=== PATIENT | female | born 1930 | race Caucasian/White ===

== ENCOUNTER → 2018-03-22 | Outpatient (CLI) | payer MEDICARE | END | disposition home or self-care (01) | LOC: HKI 11:11 | DX: M25.551 Pain in right hip (principal); I10 Essential (primary) hypertension | CPT/HCPCS: 73502 ==

== ENCOUNTER → 2018-04-12 | Outpatient (CLI) | payer MEDICARE | END | disposition home or self-care (01) | LOC: HKI 11:41 | DX: Z01.818 Encounter for other preprocedural examination (principal) | CPT/HCPCS: G0463 ==

== ENCOUNTER → 2018-05-17 | Outpatient (CLI) | payer MEDICARE | END | disposition home or self-care (01) | LOC: HKI 11:32 | DX: Z47.1 Aftercare following joint replacement surgery (principal); Z96.641 Presence of right artificial hip joint | CPT/HCPCS: 87081 ==

== ENCOUNTER 2018-06-08 21:53 | Inpatient (IN) | payer MEDICARE ==
[2018-06-08] MEDS ORDERED: HYDROmorphONE 1 MG/ML SYG (22:15)
[2018-06-08] MEDS: HYDROmorphONE 0.5 MG/0.5 ML SYG IV ×2 (22:17→22:51)
[2018-06-08 22:41] LABS: ADD MAN DIFF? NO; BASOPHIL # 0.1 10^3/ul (0.0-0.1); BASOPHILS % 0.7 % (0.0-2.0); EOSINOPHILS # 0.2 10^3/ul (0.0-0.5); EOSINOPHILS % 2.2 % (0.0-7.0); HEMATOCRIT 36.4 % (37.0-47.0); HEMOGLOBIN 11.5 g/dl (12.0-16.0); LYMPHOCYTES # 1.2 10^3/ul (0.8-2.9); LYMPHOCYTES % 15.6 % (15.0-51.0); MEAN CORPUSCULAR HGB CONC 31.6 g/dl (32.0-37.0); MEAN PLATELET VOLUME 12.1 fl (7.4-10.4); MONOCYTE # 0.7 10^3/ul (0.3-0.9); MONOCYTES % 9.6 % (0.0-11.0); NEUTROPHIL # 5.3 10^3/ul (1.6-7.5); NEUTROPHILS % 71.6 % (39.0-77.0); PLATELET COUNT 177 10^3/UL (140-415); RED BLOOD COUNT 3.83 10^6/ul (4.20-5.40); RED CELL DISTRIBUTION WIDTH 13.7 % (11.5-14.5)
[2018-06-08 22:41] LABS: WHITE BLOOD COUNT 7.4 10^3/ul (4.8-10.8)
[2018-06-08] MEDS: ONDANSETRON 4 MG INJ IV (22:51)
[2018-06-08 22:59] LABS: ALANINE AMINOTRANSFERASE 20 IU/L (13-69); ALBUMIN/GLOBULIN RATIO 1.15; ALKALINE PHOSPHATASE 47 IU/L (42-121); ANION GAP 6 (5-13); ASPARTATE AMINO TRANSFERASE 19 IU/L (15-46); BILIRUBIN,INDIRECT 0.2 mg/dl (0-1.1); BILIRUBIN,TOTAL 0.2 mg/dl (0.2-1.3); BLOOD UREA NITROGEN 23 mg/dl (7-20); CALCIUM 9.1 mg/dl (8.4-10.2); CARBON DIOXIDE 30 mmol/L (21-31); CHLORIDE 107 mmol/L (97-110); CREATININE 0.95 mg/dl (0.44-1.00); GLUCOSE 136 mg/dl (70-220); LIPASE 95 U/L (23-300); POTASSIUM 3.7 mmol/L (3.5-5.1); SODIUM 143 mmol/L (135-144); TOTAL PROTEIN 5.6 g/dl (6.1-8.1)
[2018-06-08] MEDS ORDERED: NACL 0.9% 3 ML SYG IV (23:00)
[2018-06-08] MEDS ORDERED: ONDANSETRON 4 MG TAB PO (23:00)
[2018-06-08] MEDS ORDERED: DOCUSATE SODIUM 100 MG CAP PO (23:00)
[2018-06-08] MEDS ORDERED: ACETAMINOPHEN 325 MG TAB PO (23:00)
[2018-06-08 23:04] LABS: INR 0.99; PARTIAL THROMBOPLASTIN TIME 28.7 Sec (23.0-35.0); PROTIME 13.2 Sec (11.9-14.9)
[2018-06-08 23:20] LABS: ADD UMIC NO; UR ASCORBIC ACID NEGATIVE (NEGATIVE); UR BILIRUBIN (Dip) NEGATIVE (NEGATIVE); UR BLOOD (Dip) NEGATIVE (NEGATIVE); UR CLARITY CLEAR (CLEAR); UR COLOR YELLOW (YELLOW); UR GLUCOSE (Dip) NEGATIVE (NEGATIVE); UR KETONES (Dip) NEGATIVE (NEGATIVE); UR LEUKOCYTE ESTERASE (Dip) NEGATIVE Leu/ul (NEGATIVE); UR NITRITE (Dip) NEGATIVE (NEGATIVE); UR TOTAL PROTEIN (Dip) NEGATIVE (NEGATIVE); UR UROBILINOGEN (Dip) NEGATIVE (NEGATIVE)
[2018-06-09 05:42] LABS: ADD MAN DIFF? NO
[2018-06-09 05:50] LABS: BASOPHILS % 0.4 % (0.0-2.0); EOSINOPHILS # 0.2 10^3/ul (0.0-0.5); EOSINOPHILS % 2.4 % (0.0-7.0); HEMOGLOBIN 11.1 g/dl (12.0-16.0); LYMPHOCYTES # 1.4 10^3/ul (0.8-2.9); LYMPHOCYTES % 15.4 % (15.0-51.0); MEAN CORPUSCULAR HEMOGLOBIN 30.2 pg (29.0-33.0); MEAN CORPUSCULAR HGB CONC 30.8 g/dl (32.0-37.0); MEAN CORPUSCULAR VOLUME 98.1 fl (82.0-101.0); MEAN PLATELET VOLUME 11.6 fl (7.4-10.4); MONOCYTE # 0.9 10^3/ul (0.3-0.9); MONOCYTES % 10.1 % (0.0-11.0); NEUTROPHIL # 6.4 10^3/ul (1.6-7.5); NEUTROPHILS % 71.5 % (39.0-77.0); PLATELET COUNT 183 10^3/UL (140-415); RED BLOOD COUNT 3.67 10^6/ul (4.20-5.40); RED CELL DISTRIBUTION WIDTH 13.8 % (11.5-14.5)
[2018-06-09 05:50] LABS: WHITE BLOOD COUNT 8.9 10^3/ul (4.8-10.8)
[2018-06-09 06:18] LABS: ANION GAP 4 (5-13); BLOOD UREA NITROGEN 23 mg/dl (7-20); CALCIUM 8.8 mg/dl (8.4-10.2); CARBON DIOXIDE 33 mmol/L (21-31); CHLORIDE 107 mmol/L (97-110); GLUCOSE 103 mg/dl (70-220); POTASSIUM 4.7 mmol/L (3.5-5.1); SODIUM 144 mmol/L (135-144)
[2018-06-09] MEDS ORDERED: EPINEPHrine 0.1 MG/ML SYG (07:00)
[2018-06-09] MEDS ORDERED: VECURONIUM 10 MG VIAL (07:00)
[2018-06-09] MEDS: LISINOPRIL 20 MG TAB PO ×2 (08:40→10:20)
[2018-06-09] MEDS: FAMOTIDINE 20 MG TAB PO ×2 (08:40→20:12)
[2018-06-09] MEDS: HYDROCODONE/APAP (5/325) TAB PO (08:41)
[2018-06-09] MEDS: HYDROmorphONE 2 MG/ML SYG IV (09:25)
[2018-06-09] MEDS ORDERED: HYDROmorphONE 2 MG/ML SYG IV (09:30)
[2018-06-09] MEDS ORDERED: NALOXONE (0.4 MG/ML) INJ (09:34)
[2018-06-09] MEDS ORDERED: PROPOFOL 0 ML (09:53)
[2018-06-09] MEDS: PROPOFOL 100 ML IV ×2 (10:09→22:30)
[2018-06-09] MEDS: SOD CHLORIDE 0.9% 1,000 ML IV (10:20)
[2018-06-09] MEDS ORDERED: NORepinephrine 8MG/250 ML (PMX 250 ML (11:02)
[2018-06-09] MEDS ORDERED: NORepinephrine 8MG/250 ML (PMX 250 ML IV (11:30)
[2018-06-09 13:01] LABS: AADO2 Arterial 493.7 mmHg (7.0-24.0); Allen Test ACCEPTAB; Arterial Base Excess 1.5 mmol/L (-3.0-3); Arterial Blood Gas Oxygen Sat 99.1 mmHG (95.0-100.0); Arterial COHb 0.3 % (0.0-3.0); Arterial Fraction of Oxyhgb 98.5 % (93.0-99.0); Arterial HCO3 25.1 mmol/L (22.0-26.0); Arterial MetHb 0.3 % (0.0-1.5); Arterial Total Hemglobin 12.1 g/dl (12.0-18.0); MODE VENT - AC; Site Left Radial
[2018-06-09 14:06] LABS: TROPONIN-I 0.496 ng/ml (0.000-0.120)
[2018-06-09] MEDS: FENTAnyl (DRIP) 1000 mcg/100mL 100 ML IV (14:21)
[2018-06-09] MEDS: PIPER-TAZO 3.375 GM IV (PMX) 100 ML IVPB ×2 (14:22→21:47)
[2018-06-09] MEDS: ENOXAPARIN 40 MG/0.4 ML SYG SC (14:26)
[2018-06-09] MEDS ORDERED: HYDROmorphONE 0.2 MG/ML PCA IV (18:00)
[2018-06-10 01:04] LABS: TROPONIN-I 0.728 ng/ml (0.000-0.120)
[2018-06-10] MEDS: PROPOFOL 100 ML IV ×2 (04:21→22:30)
[2018-06-10] MEDS: FENTAnyl (DRIP) 1000 mcg/100mL 100 ML IV ×2 (04:24→20:55)
[2018-06-10] MEDS: PIPER-TAZO 3.375 GM IV (PMX) 100 ML IVPB ×3 (05:28→22:05)
[2018-06-10] MEDS: ENOXAPARIN 40 MG/0.4 ML SYG SC (09:00)
[2018-06-10] MEDS: FAMOTIDINE 20 MG TAB PO ×2 (09:00→20:15)
[2018-06-10 09:11] LABS: ADD MAN DIFF? NO
[2018-06-10 09:16] LABS: BASOPHIL # 0.1 10^3/ul (0.0-0.1); BASOPHILS % 0.6 % (0.0-2.0); EOSINOPHILS # 0.2 10^3/ul (0.0-0.5); EOSINOPHILS % 2.2 % (0.0-7.0); HEMATOCRIT 31.6 % (37.0-47.0); HEMOGLOBIN 10.1 g/dl (12.0-16.0); LYMPHOCYTES # 1.4 10^3/ul (0.8-2.9); LYMPHOCYTES % 14.8 % (15.0-51.0); MEAN CORPUSCULAR HEMOGLOBIN 30.2 pg (29.0-33.0); MEAN CORPUSCULAR VOLUME 94.6 fl (82.0-101.0); MEAN PLATELET VOLUME 11.7 fl (7.4-10.4); NEUTROPHIL # 6.8 10^3/ul (1.6-7.5); NEUTROPHILS % 72.1 % (39.0-77.0); PLATELET COUNT 165 10^3/UL (140-415); RED BLOOD COUNT 3.34 10^6/ul (4.20-5.40); RED CELL DISTRIBUTION WIDTH 14.1 % (11.5-14.5)
[2018-06-10 09:16] LABS: WHITE BLOOD COUNT 9.5 10^3/ul (4.8-10.8)
[2018-06-10 09:47] LABS: ANION GAP 5 (5-13); BLOOD UREA NITROGEN 28 mg/dl (7-20); CALCIUM 8.4 mg/dl (8.4-10.2); CARBON DIOXIDE 27 mmol/L (21-31); CHLORIDE 109 mmol/L (97-110); CREATININE 1.03 mg/dl (0.44-1.00); GLUCOSE 88 mg/dl (70-220); POTASSIUM 3.6 mmol/L (3.5-5.1); SODIUM 141 mmol/L (135-144)
[2018-06-10 22:47] LABS: Allen Test ACCEPTAB; Arterial Base Excess 1.5 mmol/L (-3.0-3); Arterial Blood Gas Oxygen Sat 96.5 mmHG (95.0-100.0); Arterial COHb 0.3 % (0.0-3.0); Arterial HCO3 25.1 mmol/L (22.0-26.0); Arterial MetHb 0.2 % (0.0-1.5); Arterial Total Hemglobin 11.5 g/dl (12.0-18.0); Arterial pCO2 36.2 mmhg (35-45); Blood Gas PS 10; MODE VENT - CPAP; Site Left Radial
[2018-06-11 05:14] LABS: ADD MAN DIFF? NO
[2018-06-11 05:15] LABS: WHITE BLOOD COUNT 9.2 10^3/ul (4.8-10.8)
[2018-06-11 05:15] LABS: ABNORMAL IP MESSAGE 1; BASOPHILS % 0.3 % (0.0-2.0); EOSINOPHILS # 0.2 10^3/ul (0.0-0.5); EOSINOPHILS % 2.3 % (0.0-7.0); HEMATOCRIT 30.3 % (37.0-47.0); HEMOGLOBIN 9.7 g/dl (12.0-16.0); LYMPHOCYTES # 1.2 10^3/ul (0.8-2.9); LYMPHOCYTES % 13.4 % (15.0-51.0); MEAN CORPUSCULAR HEMOGLOBIN 30.6 pg (29.0-33.0); MEAN CORPUSCULAR VOLUME 95.6 fl (82.0-101.0); MEAN PLATELET VOLUME 13.8 fl (7.4-10.4); MONOCYTE # 1.1 10^3/ul (0.3-0.9); MONOCYTES % 11.6 % (0.0-11.0); NEUTROPHIL # 6.6 10^3/ul (1.6-7.5); NEUTROPHILS % 72.1 % (39.0-77.0); PLATELET COUNT 78 10^3/UL (140-415); RED BLOOD COUNT 3.17 10^6/ul (4.20-5.40); RED CELL DISTRIBUTION WIDTH 13.9 % (11.5-14.5)
[2018-06-11 05:24] LABS: POSITIVE DIFF @See below
[2018-06-11 05:48] LABS: ANION GAP 6 (5-13); BLOOD UREA NITROGEN 30 mg/dl (7-20); CALCIUM 8.4 mg/dl (8.4-10.2); CARBON DIOXIDE 27 mmol/L (21-31); CHLORIDE 108 mmol/L (97-110); CREATININE 0.93 mg/dl (0.44-1.00); GLUCOSE 94 mg/dl (70-220); POTASSIUM 3.9 mmol/L (3.5-5.1); SODIUM 141 mmol/L (135-144)
[2018-06-11] MEDS: PIPER-TAZO 3.375 GM IV (PMX) 100 ML IVPB ×3 (06:15→21:58)
[2018-06-11] MEDS ORDERED: ENOXAPARIN 40 MG/0.4 ML SYG SC (09:00)
[2018-06-11] MEDS ORDERED: FONDAPARINUX 2.5 MG SYG SC (10:00)
[2018-06-11] MEDS: FAMOTIDINE 20 MG TAB PO ×2 (10:58→21:58)
[2018-06-11] MEDS: AZITHROMYCIN 250 MG TAB PO (14:37)
[2018-06-11] MEDS: FONDAPARINUX 7.5 MG SYG SC (14:40)
[2018-06-11] MEDS: HYDROCODONE/APAP (5/325) TAB PO (22:10)
[2018-06-12] MEDS: LEVOFLOXACIN 500 MG TAB PO (05:14)
[2018-06-12] MEDS: HYDROCODONE/APAP (5/325) TAB PO ×2 (05:15→11:49)
[2018-06-12] MEDS: FAMOTIDINE 20 MG TAB PO (08:15)
[2018-06-12] MEDS: FONDAPARINUX 7.5 MG SYG SC (08:16)
[2018-06-12] MEDS: BISACODYL (EC) 5 MG TAB PO (11:49)
[2018-06-12] MEDS: CELECOXIB 100 MG CAP PO (14:30)
[2018-06-12] MEDS: GABAPENTIN 100 MG CAP PO (14:30)
== END 2018-06-12 19:00 | DRG 208 ==
LOC: PP2 06-09 00:07 → E/R 21:53 → MS1 06-11 15:05 → ICU 06-09 09:48
PROC: 5A1945Z Respiratory Ventilation, 24-96 Consecutive Hours (ICD-10-PCS; principal; 2018-06-10 12:59)
PROC: 0SW9XJZ Revision of Synthetic Substitute in Right Hip Joint, External Approach (ICD-10-PCS; 2018-06-10 12:59)
PROC: 0BH17EZ Insertion of Endotracheal Airway into Trachea, Via Natural or Artificial Opening (ICD-10-PCS; 2018-06-10 12:59)
PROC: 5A12012 Performance of Cardiac Output, Single, Manual (ICD-10-PCS; 2018-06-10 12:59)
PROC: 0B21XEZ Change Endotracheal Airway in Trachea, External Approach (ICD-10-PCS; 2018-06-10 12:59)
DX: R09.2 Respiratory arrest (principal); J69.0 Pneumonitis due to inhalation of food and vomit; T84.020A Dislocation of internal right hip prosthesis, initial encounter; T85.638A Leakage of other specified internal prosthetic devices, implants and grafts, initial encounter; T40.2X5A Adverse effect of other opioids, initial encounter; D69.6 Thrombocytopenia, unspecified; D64.9 Anemia, unspecified; I10 Essential (primary) hypertension; K21.9 Gastro-esophageal reflux disease without esophagitis
CPT/HCPCS: 31500; 36415; 36600; 71045; 73510; 73530; 80048; 80053; 81003; 82803; 83690; 84443; 84484; 85025; 85610; 85730; 87081; 87086; 92950; 93005; 94002; 94003; 94770; 96374; 97116; 97163; 97530; 99217; 99285-25

== ENCOUNTER 2018-06-17 15:51 | Inpatient (IN) | payer MEDICARE, BC ==
[2018-06-17 17:07] LABS: ADD MAN DIFF? NO
[2018-06-17 17:10] LABS: WHITE BLOOD COUNT 8.4 10^3/ul (4.8-10.8)
[2018-06-17 17:10] LABS: BASOPHILS % 0.5 % (0.0-2.0); EOSINOPHILS # 0.3 10^3/ul (0.0-0.5); EOSINOPHILS % 3.8 % (0.0-7.0); HEMATOCRIT 33.1 % (37.0-47.0); HEMOGLOBIN 10.6 g/dl (12.0-16.0); LYMPHOCYTES # 1.1 10^3/ul (0.8-2.9); LYMPHOCYTES % 12.5 % (15.0-51.0); MEAN CORPUSCULAR HEMOGLOBIN 30.2 pg (29.0-33.0); MEAN CORPUSCULAR VOLUME 94.3 fl (82.0-101.0); MEAN PLATELET VOLUME 10.9 fl (7.4-10.4); MONOCYTE # 0.9 10^3/ul (0.3-0.9); MONOCYTES % 10.1 % (0.0-11.0); NEUTROPHIL # 6.1 10^3/ul (1.6-7.5); NEUTROPHILS % 72.9 % (39.0-77.0); PLATELET COUNT 280 10^3/UL (140-415); RED BLOOD COUNT 3.51 10^6/ul (4.20-5.40); RED CELL DISTRIBUTION WIDTH 13.4 % (11.5-14.5)
[2018-06-17] MEDS: ONDANSETRON 4 MG INJ IV (17:12)
[2018-06-17] MEDS: SOD CHLORIDE 0.9% 500 ML IV (17:12)
[2018-06-17] MEDS: morphine 4 MG/ML VIAL IV ×2 (17:12→20:00)
[2018-06-17 17:30] LABS: INR 1.08; PROTIME 14.1 Sec (11.9-14.9); PT RATIO 1.1
[2018-06-17] MEDS ORDERED: ACETAMINOPHEN 325 MG TAB PO (17:30)
[2018-06-17] MEDS ORDERED: ONDANSETRON 4 MG INJ IV ×2 (17:30→20:30)
[2018-06-17 17:32] LABS: ANION GAP 4 (5-13); BLOOD UREA NITROGEN 22 mg/dl (7-20); CALCIUM 9.2 mg/dl (8.4-10.2); CARBON DIOXIDE 28 mmol/L (21-31); CHLORIDE 107 mmol/L (97-110); CREATININE 0.74 mg/dl (0.44-1.00); GLUCOSE 92 mg/dl (70-220); POTASSIUM 4.3 mmol/L (3.5-5.1); SODIUM 139 mmol/L (135-144)
[2018-06-17] MEDS: CELECOXIB 100 MG CAP PO (21:30)
[2018-06-17] MEDS: FUROSEMIDE 20 MG INJ IV (21:39)
[2018-06-17] MEDS: HYDROCHLOROTHIAZIDE 25 MG TAB PO (21:39)
[2018-06-17] MEDS: GABAPENTIN 100 MG CAP PO (21:40)
[2018-06-17] MEDS: DOCUSATE SODIUM 100 MG CAP PO (21:40)
[2018-06-17] MEDS: FERROUS FUMARATE (SR) TAB PO (21:40)
[2018-06-18] MEDS: morphine 2 MG INJ IV (02:18)
[2018-06-18 05:38] LABS: ADD MAN DIFF? NO
[2018-06-18] MEDS: FUROSEMIDE 20 MG INJ IV (05:41)
[2018-06-18] MEDS: PANTOPRAZOLE (EC) 40 MG TAB PO (05:41)
[2018-06-18 05:43] LABS: BASOPHILS % 0.5 % (0.0-2.0); EOSINOPHILS # 0.4 10^3/ul (0.0-0.5); EOSINOPHILS % 4.3 % (0.0-7.0); HEMATOCRIT 32.1 % (37.0-47.0); HEMOGLOBIN 9.9 g/dl (12.0-16.0); LYMPHOCYTES % 11.6 % (15.0-51.0); MEAN CORPUSCULAR HEMOGLOBIN 29.7 pg (29.0-33.0); MEAN CORPUSCULAR HGB CONC 30.8 g/dl (32.0-37.0); MEAN CORPUSCULAR VOLUME 96.4 fl (82.0-101.0); MEAN PLATELET VOLUME 10.5 fl (7.4-10.4); MONOCYTES % 11.8 % (0.0-11.0); NEUTROPHIL # 5.9 10^3/ul (1.6-7.5); NEUTROPHILS % 71.6 % (39.0-77.0); PLATELET COUNT 331 10^3/UL (140-415); RED BLOOD COUNT 3.33 10^6/ul (4.20-5.40); RED CELL DISTRIBUTION WIDTH 13.6 % (11.5-14.5)
[2018-06-18 05:43] LABS: WHITE BLOOD COUNT 8.3 10^3/ul (4.8-10.8)
[2018-06-18 06:00] LABS: CHOLESTEROL 135 mg/dl (100-200)
[2018-06-18 06:00] LABS: CHOL/HDL RATIO 4.5 RATIO; HDL CHOLESTEROL 30 mg/dl (33-92); LDL CHOLESTEROL,CALCULATED 89 mg/dl; TRIGLYCERIDES 82 mg/dl (0-149)
[2018-06-18 06:11] LABS: ANION GAP 5 (5-13); BLOOD UREA NITROGEN 23 mg/dl (7-20); CALCIUM 8.9 mg/dl (8.4-10.2); CARBON DIOXIDE 30 mmol/L (21-31); CHLORIDE 106 mmol/L (97-110); CREATININE 1.01 mg/dl (0.44-1.00); GLUCOSE 113 mg/dl (70-220); POTASSIUM 4.3 mmol/L (3.5-5.1); SODIUM 141 mmol/L (135-144)
[2018-06-18] MEDS ORDERED: PANTOPRAZOLE (EC) 40 MG TAB PO (07:20)
[2018-06-18] MEDS: FERROUS FUMARATE (SR) TAB PO ×2 (09:38→21:00)
[2018-06-18] MEDS: LISINOPRIL 20 MG TAB PO (09:39)
[2018-06-18] MEDS: ASPIRIN (EC) 81 MG TAB PO (09:39)
[2018-06-18] MEDS: CELECOXIB 100 MG CAP PO ×2 (09:39→21:13)
[2018-06-18] MEDS: DOCUSATE SODIUM 100 MG CAP PO ×2 (09:39→21:14)
[2018-06-18] MEDS: GABAPENTIN 100 MG CAP PO ×3 (09:39→21:14)
[2018-06-18] MEDS: MULTIVITAMINS/MINERALS TAB PO (09:39)
[2018-06-18 18:57] LABS: B-TYPE NATRIURETIC PEPTIDE 2470 PG/ML (0-450)
[2018-06-18 18:59] LABS: TROPONIN-I < 0.012 ng/ml (0.000-0.120)
[2018-06-18] MEDS: HYDROCHLOROTHIAZIDE 25 MG TAB PO (21:13)
[2018-06-19 01:12] LABS: TROPONIN-I 0.014 ng/ml (0.000-0.120)
[2018-06-19 05:26] LABS: ADD MAN DIFF? NO
[2018-06-19 05:30] LABS: PLATELET COUNT 256 10^3/UL (140-415)
[2018-06-19 05:31] LABS: WHITE BLOOD COUNT 6.8 10^3/ul (4.8-10.8)
[2018-06-19 05:31] LABS: BASOPHILS % 0.6 % (0.0-2.0); EOSINOPHILS # 0.4 10^3/ul (0.0-0.5); EOSINOPHILS % 5.9 % (0.0-7.0); HEMATOCRIT 32.7 % (37.0-47.0); HEMOGLOBIN 10.2 g/dl (12.0-16.0); LYMPHOCYTES # 1.2 10^3/ul (0.8-2.9); LYMPHOCYTES % 17.3 % (15.0-51.0); MEAN CORPUSCULAR HEMOGLOBIN 29.7 pg (29.0-33.0); MEAN CORPUSCULAR HGB CONC 31.2 g/dl (32.0-37.0); MEAN CORPUSCULAR VOLUME 95.3 fl (82.0-101.0); MEAN PLATELET VOLUME 10.9 fl (7.4-10.4); MONOCYTES % 15.3 % (0.0-11.0); NEUTROPHIL # 4.1 10^3/ul (1.6-7.5); NEUTROPHILS % 60.6 % (39.0-77.0); PLATELET COUNT 282 10^3/UL (140-415); RED BLOOD COUNT 3.43 10^6/ul (4.20-5.40); RED CELL DISTRIBUTION WIDTH 13.6 % (11.5-14.5)
[2018-06-19 05:52] LABS: INR 1.09; PROTIME 14.2 Sec (11.9-14.9); PT RATIO 1.1
[2018-06-19 05:53] LABS: THROMBIN TIME 14.3 SEC (13.8-19.1)
[2018-06-19] MEDS: PANTOPRAZOLE (EC) 40 MG TAB PO (06:00)
[2018-06-19 06:14] LABS: ANION GAP 3 (5-13); BLOOD UREA NITROGEN 23 mg/dl (7-20); CALCIUM 9.3 mg/dl (8.4-10.2); CARBON DIOXIDE 36 mmol/L (21-31); CHLORIDE 103 mmol/L (97-110); CREATININE 0.97 mg/dl (0.44-1.00); GLUCOSE 88 mg/dl (70-220); POTASSIUM 4.5 mmol/L (3.5-5.1); SODIUM 142 mmol/L (135-144)
[2018-06-19] MEDS ORDERED: EPHEDrine SULFATE 50 MG/5 ML SYG (07:00)
[2018-06-19] MEDS: LISINOPRIL 10 MG TAB PO (09:00)
[2018-06-19] MEDS: FUROSEMIDE 20 MG TAB PO (09:00)
[2018-06-19] MEDS: MULTIVITAMINS/MINERALS TAB PO (09:00)
[2018-06-19] MEDS: ONDANSETRON 4 MG INJ IV ×3 (09:30→21:30)
[2018-06-19] MEDS ORDERED: NACL 0.9% 3 ML SYG IV (09:30)
[2018-06-19] MEDS ORDERED: BISACODYL 10 MG SUPP PR (09:30)
[2018-06-19] MEDS ORDERED: NALOXONE (0.4 MG/ML) INJ IV (09:30)
[2018-06-19] MEDS ORDERED: DIPHENHYDRAMINE 50 MG INJ IM (09:30)
[2018-06-19] MEDS ORDERED: BETHANECHOL 25 MG TAB PO (09:30)
[2018-06-19] MEDS ORDERED: NA PHOSPHATE/BIPHOS 133 ML ENEMA PR (09:30)
[2018-06-19] MEDS ORDERED: SENNA/DOCUSATE NA (8.6MG/50MG) TAB PO (09:30)
[2018-06-19] MEDS ORDERED: NEOSTIGMINE 3 MG/3 ML SYRINGE ×2 (11:12→12:20)
[2018-06-19] MEDS ORDERED: LIDOCAINE 2% (SDV) 5 ML INJ (11:12)
[2018-06-19] MEDS ORDERED: ROCURONIUM 50 MG INJ (11:12)
[2018-06-19] MEDS ORDERED: SUCCINYLCHOLINE CHLORIDE 100 MG/5 ML SYG IV (11:12)
[2018-06-19] MEDS ORDERED: PROPOFOL 20 ML (11:12)
[2018-06-19] MEDS ORDERED: GLYCOPYRROLATE 0.4 MG INJ ×2 (11:12→12:20)
[2018-06-19] MEDS ORDERED: POLYMYXIN B 500000 UNIT INJ (11:27)
[2018-06-19] MEDS ORDERED: KETOROLAC 30 MG INJ (12:19)
[2018-06-19] MEDS ORDERED: ROPIVACAINE 0.5 % 30 ML VIAL (12:19)
[2018-06-19] MEDS ORDERED: METOCLOPRAMIDE 10 MG INJ (12:20)
[2018-06-19] MEDS ORDERED: CEFAZOLIN 1 GM INJ (12:20)
[2018-06-19] MEDS ORDERED: ONDANSETRON 4 MG INJ (12:20)
[2018-06-19] MEDS ORDERED: EPHEDrine SULFATE 50 MG/5 ML SYG IV (13:00)
[2018-06-19] MEDS ORDERED: MIDAZOLAM 1 MG/ML 2 ML INJ IV (13:00)
[2018-06-19] MEDS ORDERED: hydrALAzine 20 MG INJ IV (13:00)
[2018-06-19] MEDS ORDERED: ONDANSETRON 4 MG INJ IV (13:00)
[2018-06-19] MEDS ORDERED: HYDROmorphONE 1 MG/5 ML IV SYRINGE IV ×3 (13:00)
[2018-06-19] MEDS ORDERED: FENTAnyl 50 MCG/ML VIAL IV ×3 (13:00)
[2018-06-19] MEDS ORDERED: METOCLOPRAMIDE 10 MG INJ IV (13:00)
[2018-06-19] MEDS ORDERED: MEPERIDINE 25 MG INJ IV (13:00)
[2018-06-19] MEDS ORDERED: LABETALOL HCL 20MG INJ IV (13:00)
[2018-06-19] MEDS ORDERED: DIPHENHYDRAMINE 50 MG INJ IV (13:00)
[2018-06-19] MEDS: ASPIRIN (EC) 325 MG TAB PO (13:24)
[2018-06-19] MEDS: CEFAZOLIN 1 GM/50 ML (PMX) 50 ML IVPB ×2 (13:24→17:27)
[2018-06-19] MEDS: DOCUSATE SODIUM 100 MG CAP PO (13:24)
[2018-06-19] MEDS: GABAPENTIN 100 MG CAP PO ×2 (14:38→20:48)
[2018-06-19] MEDS: oxyCODONE 5 MG TAB PO (14:39)
[2018-06-19] MEDS: SOD CHLORIDE 0.9% 1,000 ML IV (18:12)
[2018-06-19] MEDS: HYDROCHLOROTHIAZIDE 25 MG TAB PO (20:48)
[2018-06-20] MEDS: CEFAZOLIN 1 GM/50 ML (PMX) 50 ML IVPB (01:40)
[2018-06-20] MEDS: ONDANSETRON 4 MG INJ IV (03:30)
[2018-06-20 04:47] LABS: ADD MAN DIFF? NO
[2018-06-20 04:52] LABS: BASOPHILS % 0.3 % (0.0-2.0); EOSINOPHILS # 0.3 10^3/ul (0.0-0.5); EOSINOPHILS % 2.2 % (0.0-7.0); HEMOGLOBIN 9.4 g/dl (12.0-16.0); LYMPHOCYTES # 1.1 10^3/ul (0.8-2.9); LYMPHOCYTES % 9.2 % (15.0-51.0); MEAN CORPUSCULAR HEMOGLOBIN 29.7 pg (29.0-33.0); MEAN CORPUSCULAR HGB CONC 31.3 g/dl (32.0-37.0); MEAN CORPUSCULAR VOLUME 94.9 fl (82.0-101.0); MEAN PLATELET VOLUME 12.1 fl (7.4-10.4); MONOCYTE # 1.2 10^3/ul (0.3-0.9); MONOCYTES % 9.7 % (0.0-11.0); NEUTROPHIL # 9.5 10^3/ul (1.6-7.5); NEUTROPHILS % 78.2 % (39.0-77.0); PLATELET COUNT 191 10^3/UL (140-415); RED BLOOD COUNT 3.16 10^6/ul (4.20-5.40); RED CELL DISTRIBUTION WIDTH 13.4 % (11.5-14.5)
[2018-06-20 04:52] LABS: WHITE BLOOD COUNT 12.1 10^3/ul (4.8-10.8)
[2018-06-20 05:19] LABS: ANION GAP 3 (5-13); BLOOD UREA NITROGEN 23 mg/dl (7-20); CALCIUM 8.4 mg/dl (8.4-10.2); CARBON DIOXIDE 33 mmol/L (21-31); CHLORIDE 102 mmol/L (97-110); CREATININE 0.86 mg/dl (0.44-1.00); GLUCOSE 98 mg/dl (70-220); POTASSIUM 4.4 mmol/L (3.5-5.1); SODIUM 138 mmol/L (135-144)
[2018-06-20] MEDS: PANTOPRAZOLE (EC) 40 MG TAB PO (06:12)
[2018-06-20] MEDS: SOD CHLORIDE 0.9% 1,000 ML IV ×2 (09:00→21:30)
[2018-06-20] MEDS: LISINOPRIL 10 MG TAB PO (09:25)
[2018-06-20] MEDS: FERROUS FUMARATE (SR) TAB PO ×2 (09:26→21:00)
[2018-06-20] MEDS: DOCUSATE SODIUM 100 MG CAP PO ×2 (09:26→21:25)
[2018-06-20] MEDS: MULTIVITAMINS/MINERALS TAB PO (09:27)
[2018-06-20] MEDS: ASPIRIN (EC) 325 MG TAB PO (09:27)
[2018-06-20] MEDS: oxyCODONE 5 MG TAB PO ×4 (09:28→17:34)
[2018-06-20] MEDS: FUROSEMIDE 20 MG TAB PO (09:29)
[2018-06-20] MEDS: GABAPENTIN 100 MG CAP PO ×3 (09:30→21:25)
[2018-06-20] MEDS: CELECOXIB 200 MG CAP PO ×2 (09:30→21:25)
[2018-06-20 10:59] LABS: ADD UMIC NO; UR ASCORBIC ACID NEGATIVE (NEGATIVE); UR BILIRUBIN (Dip) NEGATIVE (NEGATIVE); UR BLOOD (Dip) NEGATIVE (NEGATIVE); UR CLARITY CLEAR (CLEAR); UR COLOR YELLOW (YELLOW); UR GLUCOSE (Dip) NEGATIVE (NEGATIVE); UR KETONES (Dip) NEGATIVE (NEGATIVE); UR LEUKOCYTE ESTERASE (Dip) NEGATIVE Leu/ul (NEGATIVE); UR NITRITE (Dip) NEGATIVE (NEGATIVE); UR SPECIFIC GRAVITY (Dip) 1.017 (1.003-1.030); UR TOTAL PROTEIN (Dip) NEGATIVE (NEGATIVE); UR UROBILINOGEN (Dip) NEGATIVE (NEGATIVE)
[2018-06-20] MEDS: HYDROCHLOROTHIAZIDE 25 MG TAB PO (21:27)
[2018-06-20] MEDS: MAGNESIUM HYDROXIDE 30ML CUP PO (21:30)
[2018-06-21 05:08] LABS: ADD MAN DIFF? NO
[2018-06-21 05:10] LABS: WHITE BLOOD COUNT 9.1 10^3/ul (4.8-10.8)
[2018-06-21 05:10] LABS: BASOPHILS % 0.4 % (0.0-2.0); EOSINOPHILS # 0.5 10^3/ul (0.0-0.5); EOSINOPHILS % 5.1 % (0.0-7.0); HEMOGLOBIN 9.1 g/dl (12.0-16.0); LYMPHOCYTES # 1.3 10^3/ul (0.8-2.9); LYMPHOCYTES % 14.6 % (15.0-51.0); MEAN CORPUSCULAR HEMOGLOBIN 29.8 pg (29.0-33.0); MEAN CORPUSCULAR HGB CONC 31.4 g/dl (32.0-37.0); MEAN CORPUSCULAR VOLUME 95.1 fl (82.0-101.0); MEAN PLATELET VOLUME 10.8 fl (7.4-10.4); MONOCYTE # 1.3 10^3/ul (0.3-0.9); MONOCYTES % 14.6 % (0.0-11.0); NEUTROPHIL # 5.9 10^3/ul (1.6-7.5); PLATELET COUNT 271 10^3/UL (140-415); RED BLOOD COUNT 3.05 10^6/ul (4.20-5.40); RED CELL DISTRIBUTION WIDTH 13.6 % (11.5-14.5)
[2018-06-21 05:50] LABS: ANION GAP 4 (5-13); BLOOD UREA NITROGEN 27 mg/dl (7-20); CALCIUM 8.4 mg/dl (8.4-10.2); CARBON DIOXIDE 34 mmol/L (21-31); CHLORIDE 102 mmol/L (97-110); CREATININE 0.96 mg/dl (0.44-1.00); GLUCOSE 101 mg/dl (70-220); POTASSIUM 3.9 mmol/L (3.5-5.1); SODIUM 140 mmol/L (135-144)
[2018-06-21] MEDS: PANTOPRAZOLE (EC) 40 MG TAB PO (06:39)
[2018-06-21] MEDS: FERROUS FUMARATE (SR) TAB PO ×2 (09:00→21:00)
[2018-06-21] MEDS: LISINOPRIL 10 MG TAB PO (09:00)
[2018-06-21] MEDS: SOD CHLORIDE 0.9% 1,000 ML IV ×2 (10:00→22:30)
[2018-06-21] MEDS: DOCUSATE SODIUM 100 MG CAP PO ×2 (10:41→21:01)
[2018-06-21] MEDS: ASPIRIN (EC) 325 MG TAB PO (10:41)
[2018-06-21] MEDS: MULTIVITAMINS/MINERALS TAB PO (10:41)
[2018-06-21] MEDS: GABAPENTIN 100 MG CAP PO ×3 (10:42→21:01)
[2018-06-21] MEDS: FUROSEMIDE 20 MG TAB PO (10:43)
[2018-06-21] MEDS: CELECOXIB 200 MG CAP PO (10:44)
[2018-06-21] MEDS: oxyCODONE 5 MG TAB PO ×2 (10:51→14:30)
[2018-06-21] MEDS: CELECOXIB 100 MG CAP PO (21:01)
[2018-06-21] MEDS: HYDROCHLOROTHIAZIDE 25 MG TAB PO (21:02)
[2018-06-22 05:15] LABS: ADD MAN DIFF? NO
[2018-06-22 05:19] LABS: BASOPHILS % 0.4 % (0.0-2.0); EOSINOPHILS # 0.5 10^3/ul (0.0-0.5); EOSINOPHILS % 5.7 % (0.0-7.0); HEMATOCRIT 30.2 % (37.0-47.0); HEMOGLOBIN 9.6 g/dl (12.0-16.0); LYMPHOCYTES # 1.6 10^3/ul (0.8-2.9); LYMPHOCYTES % 17.4 % (15.0-51.0); MEAN CORPUSCULAR HEMOGLOBIN 29.8 pg (29.0-33.0); MEAN CORPUSCULAR HGB CONC 31.8 g/dl (32.0-37.0); MEAN CORPUSCULAR VOLUME 93.8 fl (82.0-101.0); MEAN PLATELET VOLUME 10.5 fl (7.4-10.4); MONOCYTE # 1.2 10^3/ul (0.3-0.9); MONOCYTES % 13.6 % (0.0-11.0); NEUTROPHIL # 5.6 10^3/ul (1.6-7.5); NEUTROPHILS % 62.5 % (39.0-77.0); PLATELET COUNT 329 10^3/UL (140-415); RED BLOOD COUNT 3.22 10^6/ul (4.20-5.40); RED CELL DISTRIBUTION WIDTH 13.4 % (11.5-14.5)
[2018-06-22 06:05] LABS: ANION GAP 4 (5-13); BLOOD UREA NITROGEN 23 mg/dl (7-20); CALCIUM 8.8 mg/dl (8.4-10.2); CARBON DIOXIDE 34 mmol/L (21-31); CHLORIDE 103 mmol/L (97-110); CREATININE 0.86 mg/dl (0.44-1.00); GLUCOSE 96 mg/dl (70-220); POTASSIUM 3.9 mmol/L (3.5-5.1); SODIUM 141 mmol/L (135-144)
[2018-06-22] MEDS: PANTOPRAZOLE (EC) 40 MG TAB PO (06:09)
[2018-06-22] MEDS: LISINOPRIL 10 MG TAB PO (09:36)
[2018-06-22] MEDS: CELECOXIB 100 MG CAP PO (09:37)
[2018-06-22] MEDS: DOCUSATE SODIUM 100 MG CAP PO (09:37)
[2018-06-22] MEDS: MULTIVITAMINS/MINERALS TAB PO (09:37)
[2018-06-22] MEDS: FERROUS FUMARATE (SR) TAB PO (09:38)
[2018-06-22] MEDS: ASPIRIN (EC) 325 MG TAB PO (09:38)
[2018-06-22] MEDS: GABAPENTIN 100 MG CAP PO ×2 (09:38→12:12)
[2018-06-22] MEDS: FUROSEMIDE 20 MG TAB PO (09:38)
[2018-06-22] MEDS: oxyCODONE 5 MG TAB PO ×2 (09:39→17:05)
[2018-06-22] MEDS: SOD CHLORIDE 0.9% 1,000 ML IV (11:00)
[2018-06-22] MEDS: ACETAMINOPHEN 325 MG TAB PO (12:11)
== END 2018-06-22 18:15 | DRG 466 ==
LOC: E/R 15:51 → MS1 17:25
PROC: 0SRR03A Replacement of Right Hip Joint, Femoral Surface with Ceramic Synthetic Substitute, Uncemented, Open Approach (ICD-10-PCS; principal; 2018-06-19 07:30)
PROC: 0SPR0JZ Removal of Synthetic Substitute from Right Hip Joint, Femoral Surface, Open Approach (ICD-10-PCS; 2018-06-19 07:30)
PROC: 0SP909Z Removal of Liner from Right Hip Joint, Open Approach (ICD-10-PCS; 2018-06-19 07:30)
PROC: 0SUA09Z Supplement Right Hip Joint, Acetabular Surface with Liner, Open Approach (ICD-10-PCS; 2018-06-19 07:30)
DX: T84.020A Dislocation of internal right hip prosthesis, initial encounter (principal); I50.31 Acute diastolic (congestive) heart failure; K21.9 Gastro-esophageal reflux disease without esophagitis; E78.5 Hyperlipidemia, unspecified; D64.9 Anemia, unspecified; I11.0 Hypertensive heart disease with heart failure; I95.9 Hypotension, unspecified; E66.9 Obesity, unspecified; Z68.34 Body mass index [BMI] 34.0-34.9, adult; M24.451 Recurrent dislocation, right hip; Z79.82 Long term (current) use of aspirin
CPT/HCPCS: 36415; 71045; 72170; 73510; 80048; 80061; 81003; 83880; 84484; 85025; 85049; 85610; 85670; 85730; 86850; 86900; 86901; 86920; 87081; 87086; 88300; 93005; 93306; 93970; 96374; 96375; 97110; 97116; 97161; 97530; 99285-25

== ENCOUNTER 2018-06-22 18:33 | Inpatient (IN) | payer MEDICARE, BC ==
[2018-06-22] MEDS ORDERED: BISACODYL 10 MG SUPP PR (19:00)
[2018-06-22] MEDS ORDERED: DIPHENHYDRAMINE 50 MG INJ IM (19:00)
[2018-06-22] MEDS ORDERED: NA PHOSPHATE/BIPHOS 133 ML ENEMA PR (19:00)
[2018-06-22] MEDS ORDERED: MAGNESIUM HYDROXIDE 30ML CUP PO (19:00)
[2018-06-22] MEDS ORDERED: morphine 2 MG INJ IV (19:00)
[2018-06-22] MEDS ORDERED: SENNA/DOCUSATE NA (8.6MG/50MG) TAB PO (19:00)
[2018-06-22] MEDS ORDERED: NALOXONE (0.4 MG/ML) INJ IV (19:00)
[2018-06-22] MEDS: FERROUS FUMARATE (SR) TAB PO (22:30)
[2018-06-22] MEDS: CELECOXIB 100 MG CAP PO (22:31)
[2018-06-22] MEDS: GABAPENTIN 100 MG CAP PO (22:31)
[2018-06-22] MEDS: DOCUSATE SODIUM 100 MG CAP PO (22:31)
[2018-06-22] MEDS: HYDROCHLOROTHIAZIDE 25 MG TAB PO (22:40)
[2018-06-22 23:30] LABS: ADD UMIC NO; UR ASCORBIC ACID NEGATIVE (NEGATIVE); UR BILIRUBIN (Dip) NEGATIVE (NEGATIVE); UR BLOOD (Dip) NEGATIVE (NEGATIVE); UR CLARITY CLEAR (CLEAR); UR COLOR YELLOW (YELLOW); UR GLUCOSE (Dip) NEGATIVE (NEGATIVE); UR KETONES (Dip) NEGATIVE (NEGATIVE); UR LEUKOCYTE ESTERASE (Dip) NEGATIVE Leu/ul (NEGATIVE); UR NITRITE (Dip) NEGATIVE (NEGATIVE); UR SPECIFIC GRAVITY (Dip) 1.012 (1.003-1.030); UR TOTAL PROTEIN (Dip) NEGATIVE (NEGATIVE); UR UROBILINOGEN (Dip) NEGATIVE (NEGATIVE)
[2018-06-23] MEDS: PANTOPRAZOLE (EC) 40 MG TAB PO (06:19)
[2018-06-23 07:16] LABS: ADD MAN DIFF? NO
[2018-06-23 07:21] LABS: BASOPHIL # 0.1 10^3/ul (0.0-0.1); BASOPHILS % 0.8 % (0.0-2.0); EOSINOPHILS # 0.5 10^3/ul (0.0-0.5); EOSINOPHILS % 6.4 % (0.0-7.0); HEMATOCRIT 31.7 % (37.0-47.0); HEMOGLOBIN 9.9 g/dl (12.0-16.0); LYMPHOCYTES # 1.5 10^3/ul (0.8-2.9); LYMPHOCYTES % 18.5 % (15.0-51.0); MEAN CORPUSCULAR HEMOGLOBIN 29.2 pg (29.0-33.0); MEAN CORPUSCULAR HGB CONC 31.2 g/dl (32.0-37.0); MEAN CORPUSCULAR VOLUME 93.5 fl (82.0-101.0); MEAN PLATELET VOLUME 11.3 fl (7.4-10.4); MONOCYTE # 1.1 10^3/ul (0.3-0.9); MONOCYTES % 13.7 % (0.0-11.0); NEUTROPHIL # 4.8 10^3/ul (1.6-7.5); NEUTROPHILS % 60.3 % (39.0-77.0); PLATELET COUNT 307 10^3/UL (140-415); RED BLOOD COUNT 3.39 10^6/ul (4.20-5.40); RED CELL DISTRIBUTION WIDTH 13.3 % (11.5-14.5)
[2018-06-23 07:44] LABS: ALANINE AMINOTRANSFERASE 12 IU/L (13-69); ALBUMIN 2.9 g/dl (3.3-4.9); ALBUMIN/GLOBULIN RATIO 1.11; ALKALINE PHOSPHATASE 65 IU/L (42-121); ANION GAP 6 (5-13); ASPARTATE AMINO TRANSFERASE 19 IU/L (15-46); BILIRUBIN,INDIRECT 0.4 mg/dl (0-1.1); BILIRUBIN,TOTAL 0.4 mg/dl (0.2-1.3); BLOOD UREA NITROGEN 17 mg/dl (7-20); CALCIUM 9.1 mg/dl (8.4-10.2); CARBON DIOXIDE 33 mmol/L (21-31); CHLORIDE 104 mmol/L (97-110); CREATININE 0.71 mg/dl (0.44-1.00); GLUCOSE 91 mg/dl (70-220); SODIUM 143 mmol/L (135-144); TOTAL PROTEIN 5.5 g/dl (6.1-8.1)
[2018-06-23] MEDS: LISINOPRIL 10 MG TAB PO (09:00)
[2018-06-23] MEDS: FERROUS FUMARATE (SR) TAB PO ×2 (09:56→21:35)
[2018-06-23] MEDS: MULTIVITAMINS/MINERALS TAB PO (09:56)
[2018-06-23] MEDS: ASPIRIN (EC) 325 MG TAB PO (09:56)
[2018-06-23] MEDS: GABAPENTIN 100 MG CAP PO ×3 (09:57→21:35)
[2018-06-23] MEDS: DOCUSATE SODIUM 100 MG CAP PO ×2 (09:58→21:35)
[2018-06-23] MEDS: CELECOXIB 100 MG CAP PO ×2 (09:58→21:35)
[2018-06-23] MEDS: FUROSEMIDE 20 MG TAB PO (09:58)
[2018-06-23] MEDS: ACETAMINOPHEN 325 MG TAB PO (21:35)
[2018-06-24] MEDS: PANTOPRAZOLE (EC) 40 MG TAB PO (06:34)
[2018-06-24] MEDS: oxyCODONE 5 MG TAB PO ×2 (08:13→20:12)
[2018-06-24] MEDS: FERROUS FUMARATE (SR) TAB PO ×2 (08:16→20:10)
[2018-06-24] MEDS: DOCUSATE SODIUM 100 MG CAP PO ×2 (08:16→20:10)
[2018-06-24] MEDS: ASPIRIN (EC) 325 MG TAB PO (08:16)
[2018-06-24] MEDS: GABAPENTIN 100 MG CAP PO ×3 (08:16→20:10)
[2018-06-24] MEDS: MULTIVITAMINS/MINERALS TAB PO (08:16)
[2018-06-24] MEDS: ACETAMINOPHEN 325 MG TAB PO (12:26)
[2018-06-24] MEDS: LISINOPRIL 10 MG TAB PO (12:49)
[2018-06-24] MEDS: CELECOXIB 100 MG CAP PO ×2 (14:42→20:10)
[2018-06-25] MEDS: PANTOPRAZOLE (EC) 40 MG TAB PO (06:08)
[2018-06-25] MEDS: oxyCODONE 5 MG TAB PO (07:52)
[2018-06-25] MEDS: ASPIRIN (EC) 325 MG TAB PO (08:24)
[2018-06-25] MEDS: FERROUS FUMARATE (SR) TAB PO ×2 (08:24→20:16)
[2018-06-25] MEDS: MULTIVITAMINS/MINERALS TAB PO (08:24)
[2018-06-25] MEDS: LISINOPRIL 10 MG TAB PO (08:25)
[2018-06-25] MEDS: GABAPENTIN 100 MG CAP PO ×3 (08:25→20:16)
[2018-06-25] MEDS: CELECOXIB 100 MG CAP PO ×2 (08:25→20:17)
[2018-06-25] MEDS: DOCUSATE SODIUM 100 MG CAP PO ×2 (08:25→20:17)
[2018-06-25] MEDS: ACETAMINOPHEN 325 MG TAB PO (17:02)
[2018-06-26] MEDS: PANTOPRAZOLE (EC) 40 MG TAB PO (06:25)
[2018-06-26] MEDS: DOCUSATE SODIUM 100 MG CAP PO ×2 (08:18→20:53)
[2018-06-26] MEDS: GABAPENTIN 100 MG CAP PO ×3 (08:18→20:52)
[2018-06-26] MEDS: CELECOXIB 100 MG CAP PO ×2 (08:18→20:52)
[2018-06-26] MEDS: LISINOPRIL 20 MG TAB PO (08:18)
[2018-06-26] MEDS: oxyCODONE 5 MG TAB PO (08:19)
[2018-06-26] MEDS: ASPIRIN (EC) 325 MG TAB PO (08:19)
[2018-06-26] MEDS: MULTIVITAMINS/MINERALS TAB PO (08:19)
[2018-06-26] MEDS: FERROUS FUMARATE (SR) TAB PO ×2 (08:19→20:52)
[2018-06-27] MEDS: PANTOPRAZOLE (EC) 40 MG TAB PO (06:06)
[2018-06-27] MEDS: ASPIRIN (EC) 325 MG TAB PO (08:38)
[2018-06-27] MEDS: CELECOXIB 100 MG CAP PO ×2 (08:38→20:24)
[2018-06-27] MEDS: LISINOPRIL 20 MG TAB PO (08:38)
[2018-06-27] MEDS: FERROUS FUMARATE (SR) TAB PO ×2 (08:38→20:24)
[2018-06-27] MEDS: GABAPENTIN 100 MG CAP PO ×3 (08:38→20:24)
[2018-06-27] MEDS: MULTIVITAMINS/MINERALS TAB PO (08:38)
[2018-06-27] MEDS: DOCUSATE SODIUM 100 MG CAP PO ×2 (08:39→20:24)
[2018-06-27] MEDS: oxyCODONE 5 MG TAB PO ×2 (11:14→18:42)
[2018-06-28 06:16] LABS: ADD MAN DIFF? NO
[2018-06-28 06:19] LABS: BASOPHIL # 0.1 10^3/ul (0.0-0.1); BASOPHILS % 0.8 % (0.0-2.0); EOSINOPHILS # 0.6 10^3/ul (0.0-0.5); EOSINOPHILS % 8.8 % (0.0-7.0); HEMATOCRIT 32.6 % (37.0-47.0); LYMPHOCYTES # 1.3 10^3/ul (0.8-2.9); LYMPHOCYTES % 17.1 % (15.0-51.0); MEAN CORPUSCULAR HEMOGLOBIN 29.3 pg (29.0-33.0); MEAN CORPUSCULAR HGB CONC 30.7 g/dl (32.0-37.0); MEAN CORPUSCULAR VOLUME 95.6 fl (82.0-101.0); MEAN PLATELET VOLUME 11.9 fl (7.4-10.4); MONOCYTE # 0.8 10^3/ul (0.3-0.9); MONOCYTES % 11.2 % (0.0-11.0); NEUTROPHIL # 4.5 10^3/ul (1.6-7.5); NEUTROPHILS % 61.7 % (39.0-77.0); PLATELET COUNT 226 10^3/UL (140-415); RED BLOOD COUNT 3.41 10^6/ul (4.20-5.40); RED CELL DISTRIBUTION WIDTH 13.8 % (11.5-14.5)
[2018-06-28 06:19] LABS: WHITE BLOOD COUNT 7.3 10^3/ul (4.8-10.8)
[2018-06-28] MEDS: PANTOPRAZOLE (EC) 40 MG TAB PO (06:20)
[2018-06-28 06:57] LABS: ANION GAP 1 (5-13); BLOOD UREA NITROGEN 22 mg/dl (7-20); CALCIUM 8.8 mg/dl (8.4-10.2); CARBON DIOXIDE 30 mmol/L (21-31); CHLORIDE 110 mmol/L (97-110); CREATININE 0.75 mg/dl (0.44-1.00); GLUCOSE 99 mg/dl (70-220); SODIUM 141 mmol/L (135-144)
[2018-06-28 07:26] LABS: POTASSIUM 4.3 mmol/L (3.5-5.1)
[2018-06-28] MEDS: MULTIVITAMINS/MINERALS TAB PO (09:10)
[2018-06-28] MEDS: ASPIRIN (EC) 325 MG TAB PO (09:11)
[2018-06-28] MEDS: LISINOPRIL 20 MG TAB PO (09:11)
[2018-06-28] MEDS: DOCUSATE SODIUM 100 MG CAP PO ×2 (09:11→20:26)
[2018-06-28] MEDS: CELECOXIB 100 MG CAP PO ×2 (09:11→20:25)
[2018-06-28] MEDS: FERROUS FUMARATE (SR) TAB PO ×2 (09:12→20:26)
[2018-06-28] MEDS: GABAPENTIN 100 MG CAP PO ×3 (09:12→20:26)
[2018-06-28] MEDS: oxyCODONE 5 MG TAB PO (12:06)
[2018-06-29] MEDS: PANTOPRAZOLE (EC) 40 MG TAB PO (05:58)
[2018-06-29] MEDS: FERROUS FUMARATE (SR) TAB PO ×2 (09:44→20:22)
[2018-06-29] MEDS: CELECOXIB 100 MG CAP PO ×2 (09:44→20:23)
[2018-06-29] MEDS: LISINOPRIL 20 MG TAB PO (09:44)
[2018-06-29] MEDS: MULTIVITAMINS/MINERALS TAB PO (09:44)
[2018-06-29] MEDS: ASPIRIN (EC) 325 MG TAB PO (09:44)
[2018-06-29] MEDS: DOCUSATE SODIUM 100 MG CAP PO ×2 (09:44→20:23)
[2018-06-29] MEDS: oxyCODONE 5 MG TAB PO ×2 (09:45→20:23)
[2018-06-29] MEDS: GABAPENTIN 100 MG CAP PO ×3 (09:45→20:23)
[2018-06-29] MEDS: ACETAMINOPHEN 325 MG TAB PO (11:27)
[2018-06-30] MEDS: PANTOPRAZOLE (EC) 40 MG TAB PO (06:03)
[2018-06-30] MEDS: ASPIRIN (EC) 325 MG TAB PO (08:36)
[2018-06-30] MEDS: FERROUS FUMARATE (SR) TAB PO ×2 (08:36→21:39)
[2018-06-30] MEDS: MULTIVITAMINS/MINERALS TAB PO (08:36)
[2018-06-30] MEDS: DOCUSATE SODIUM 100 MG CAP PO ×2 (08:36→21:39)
[2018-06-30] MEDS: CELECOXIB 100 MG CAP PO ×2 (08:36→21:38)
[2018-06-30] MEDS: GABAPENTIN 100 MG CAP PO ×3 (08:37→21:39)
[2018-06-30] MEDS: LISINOPRIL 20 MG TAB PO (08:39)
[2018-06-30] MEDS: oxyCODONE 5 MG TAB PO ×3 (09:00→18:46)
[2018-07-01] MEDS: PANTOPRAZOLE (EC) 40 MG TAB PO (06:37)
[2018-07-01] MEDS: LISINOPRIL 20 MG TAB PO (09:00)
[2018-07-01] MEDS: GABAPENTIN 100 MG CAP PO ×3 (09:31→21:10)
[2018-07-01] MEDS: DOCUSATE SODIUM 100 MG CAP PO ×2 (09:31→21:10)
[2018-07-01] MEDS: FERROUS FUMARATE (SR) TAB PO ×2 (09:32→21:10)
[2018-07-01] MEDS: MULTIVITAMINS/MINERALS TAB PO (09:35)
[2018-07-01] MEDS: CELECOXIB 100 MG CAP PO ×2 (09:35→21:10)
[2018-07-01] MEDS: ASPIRIN (EC) 325 MG TAB PO (09:35)
[2018-07-02] MEDS: PANTOPRAZOLE (EC) 40 MG TAB PO (06:47)
[2018-07-02] MEDS: GABAPENTIN 100 MG CAP PO ×3 (08:04→21:06)
[2018-07-02] MEDS: FERROUS FUMARATE (SR) TAB PO ×2 (08:04→21:06)
[2018-07-02] MEDS: ASPIRIN (EC) 325 MG TAB PO (08:04)
[2018-07-02] MEDS: CELECOXIB 100 MG CAP PO ×2 (08:05→21:06)
[2018-07-02] MEDS: DOCUSATE SODIUM 100 MG CAP PO ×2 (08:05→21:06)
[2018-07-02] MEDS: MULTIVITAMINS/MINERALS TAB PO (08:05)
[2018-07-02] MEDS: LISINOPRIL 20 MG TAB PO (08:05)
[2018-07-03] MEDS: PANTOPRAZOLE (EC) 40 MG TAB PO (06:28)
[2018-07-03] MEDS: LISINOPRIL 20 MG TAB PO (09:41)
[2018-07-03] MEDS: CELECOXIB 100 MG CAP PO ×2 (09:41→21:34)
[2018-07-03] MEDS: GABAPENTIN 100 MG CAP PO ×3 (09:41→21:34)
[2018-07-03] MEDS: ASPIRIN (EC) 325 MG TAB PO (09:41)
[2018-07-03] MEDS: MULTIVITAMINS/MINERALS TAB PO (09:41)
[2018-07-03] MEDS: DOCUSATE SODIUM 100 MG CAP PO ×2 (09:42→21:33)
[2018-07-03] MEDS: FERROUS FUMARATE (SR) TAB PO ×2 (09:42→21:33)
[2018-07-04] MEDS: PANTOPRAZOLE (EC) 40 MG TAB PO (05:43)
[2018-07-04] MEDS: DOCUSATE SODIUM 100 MG CAP PO ×2 (09:29→21:05)
[2018-07-04] MEDS: ASPIRIN (EC) 325 MG TAB PO (09:29)
[2018-07-04] MEDS: LISINOPRIL 20 MG TAB PO (09:30)
[2018-07-04] MEDS: FERROUS FUMARATE (SR) TAB PO ×2 (09:30→21:05)
[2018-07-04] MEDS: GABAPENTIN 100 MG CAP PO ×3 (09:30→21:05)
[2018-07-04] MEDS: CELECOXIB 100 MG CAP PO ×2 (09:30→21:05)
[2018-07-04] MEDS: oxyCODONE 5 MG TAB PO ×3 (09:30→16:52)
[2018-07-04] MEDS: MULTIVITAMINS/MINERALS TAB PO (09:31)
[2018-07-05] MEDS: PANTOPRAZOLE (EC) 40 MG TAB PO (06:12)
[2018-07-05] MEDS: CELECOXIB 100 MG CAP PO ×2 (08:29→20:28)
[2018-07-05] MEDS: MULTIVITAMINS/MINERALS TAB PO (08:29)
[2018-07-05] MEDS: FERROUS FUMARATE (SR) TAB PO ×2 (08:29→20:31)
[2018-07-05] MEDS: DOCUSATE SODIUM 100 MG CAP PO ×2 (08:29→20:28)
[2018-07-05] MEDS: ASPIRIN (EC) 325 MG TAB PO (08:29)
[2018-07-05] MEDS: GABAPENTIN 100 MG CAP PO ×3 (08:29→20:28)
[2018-07-05] MEDS: LISINOPRIL 20 MG TAB PO (08:30)
[2018-07-05] MEDS: oxyCODONE 5 MG TAB PO (17:35)
[2018-07-06] MEDS: PANTOPRAZOLE (EC) 40 MG TAB PO (06:21)
[2018-07-06] MEDS: ASPIRIN (EC) 325 MG TAB PO (08:36)
[2018-07-06] MEDS: MULTIVITAMINS/MINERALS TAB PO (08:36)
[2018-07-06] MEDS: FERROUS FUMARATE (SR) TAB PO ×2 (08:37→21:25)
[2018-07-06] MEDS: CELECOXIB 100 MG CAP PO ×2 (08:37→21:25)
[2018-07-06] MEDS: DOCUSATE SODIUM 100 MG CAP PO ×2 (08:37→21:28)
[2018-07-06] MEDS: GABAPENTIN 100 MG CAP PO ×3 (08:37→21:25)
[2018-07-06] MEDS: LISINOPRIL 20 MG TAB PO (08:37)
[2018-07-07] MEDS: PANTOPRAZOLE (EC) 40 MG TAB PO (05:41)
[2018-07-07] MEDS: MULTIVITAMINS/MINERALS TAB PO (09:16)
[2018-07-07] MEDS: DOCUSATE SODIUM 100 MG CAP PO ×2 (09:16→20:23)
[2018-07-07] MEDS: FERROUS FUMARATE (SR) TAB PO ×2 (09:16→20:23)
[2018-07-07] MEDS: LISINOPRIL 20 MG TAB PO (09:16)
[2018-07-07] MEDS: ASPIRIN (EC) 325 MG TAB PO (09:17)
[2018-07-07] MEDS: GABAPENTIN 100 MG CAP PO ×3 (09:17→20:23)
[2018-07-07] MEDS: CELECOXIB 100 MG CAP PO ×2 (09:17→20:22)
[2018-07-07] MEDS: oxyCODONE 5 MG TAB PO (20:26)
[2018-07-08] MEDS: PANTOPRAZOLE (EC) 40 MG TAB PO (06:01)
[2018-07-08] MEDS: CELECOXIB 100 MG CAP PO ×2 (08:35→21:18)
[2018-07-08] MEDS: DOCUSATE SODIUM 100 MG CAP PO ×2 (08:35→21:18)
[2018-07-08] MEDS: FERROUS FUMARATE (SR) TAB PO ×2 (08:35→21:18)
[2018-07-08] MEDS: ASPIRIN (EC) 325 MG TAB PO (08:35)
[2018-07-08] MEDS: GABAPENTIN 100 MG CAP PO ×3 (08:35→21:18)
[2018-07-08] MEDS: LISINOPRIL 20 MG TAB PO (08:36)
[2018-07-08] MEDS: MULTIVITAMINS/MINERALS TAB PO (08:36)
[2018-07-09] MEDS: PANTOPRAZOLE (EC) 40 MG TAB PO (06:16)
[2018-07-09] MEDS: CELECOXIB 100 MG CAP PO (08:11)
[2018-07-09] MEDS: GABAPENTIN 100 MG CAP PO ×2 (08:12→12:24)
[2018-07-09] MEDS: DOCUSATE SODIUM 100 MG CAP PO (08:12)
[2018-07-09] MEDS: FERROUS FUMARATE (SR) TAB PO (08:12)
[2018-07-09] MEDS: MULTIVITAMINS/MINERALS TAB PO (08:12)
[2018-07-09] MEDS: ASPIRIN (EC) 325 MG TAB PO (08:12)
[2018-07-09] MEDS: LISINOPRIL 20 MG TAB PO (08:14)
[2018-07-09] MEDS: oxyCODONE 5 MG TAB PO ×2 (08:14→12:25)
== END 2018-07-09 13:50 | disposition home health service (06) | DRG 559 ==
LOC: VRC 20:00
PROC: F07Z5ZZ Bed Mobility Treatment (ICD-10-PCS; principal; 2018-06-23)
PROC: F07Z8ZZ Transfer Training Treatment (ICD-10-PCS; 2018-06-23)
PROC: F07Z9ZZ Gait Training/Functional Ambulation Treatment (ICD-10-PCS; 2018-06-23)
PROC: F08Z2ZZ Grooming/Personal Hygiene Treatment (ICD-10-PCS; 2018-06-23)
PROC: F08Z1ZZ Dressing Techniques Treatment (ICD-10-PCS; 2018-06-23)
PROC: F08Z0ZZ Bathing/Showering Techniques Treatment (ICD-10-PCS; 2018-06-23)
DX: Z47.1 Aftercare following joint replacement surgery (principal); I50.33 Acute on chronic diastolic (congestive) heart failure; G31.84 Mild cognitive impairment of uncertain or unknown etiology; R13.10 Dysphagia, unspecified; I11.0 Hypertensive heart disease with heart failure; M19.90 Unspecified osteoarthritis, unspecified site; K21.9 Gastro-esophageal reflux disease without esophagitis; D64.9 Anemia, unspecified; E78.5 Hyperlipidemia, unspecified; E66.9 Obesity, unspecified; F06.31 Mood disorder due to known physiological condition with depressive features; I95.1 Orthostatic hypotension; R53.81 Other malaise; Z74.09 Other reduced mobility; Z96.641 Presence of right artificial hip joint; Z68.33 Body mass index [BMI] 33.0-33.9, adult
CPT/HCPCS: 80048; 80053; 81003; 85025; 87081; 87086; 92507; 92523; 92610; 97110; 97112; 97116; 97150; 97163; 97167; 97530; 97535; 97542

== ENCOUNTER → 2018-07-30 | Outpatient (CLI) | payer MEDICARE, BC | END | disposition home or self-care (01) | LOC: HKI 14:10 | DX: Z47.1 Aftercare following joint replacement surgery (principal); Z96.641 Presence of right artificial hip joint | CPT/HCPCS: 73502 ==

== ENCOUNTER → 2018-09-03 | Outpatient (CLI) | payer MEDICARE, BC, MEDICAID | END | disposition home or self-care (01) | LOC: HKI 13:43 | DX: Z47.1 Aftercare following joint replacement surgery (principal); Z96.641 Presence of right artificial hip joint | CPT/HCPCS: 73502 ==